=== PATIENT | male | born 1970 | race Caucasian/White ===

== ENCOUNTER 2016-08-03 10:20 | Emergency (ER) | payer BC ==
--- NOTE | 2016-08-03 10:30 | EDM.PDOC ---
ED HPI GENERAL MEDICAL PROBLEM - General Stated Complaint: SHAKING Time Seen by Provider: 08/03/16 10:30 - History of Present Illness INITIAL COMMENTS - FREE TEXT/NARRATIVE: 46-year-old male presents to the emergency room after having a near syncopal type episode. Shortly before arrival the patient was driving and became lightheaded and shaky. The patient has not had prior episodes like this. He did notice he was having intermittent very brief twinges of chest pressure these were infrequent lasted less than 20 seconds. He did not have pain in his arms and his neck or elsewhere. Patient was not having any nausea no shortness of breath or diaphoresis. He is not currently treated for any medical condition. Family history is negative for people with syncopal-type episodes or premature coronary artery disease Left Chest Pain Score (Numeric/FACES): 2 - Related Data Allergies Allergy/AdvReac Type Severity Reaction Status Date / Time No Known Allergies Allergy Verified 08/03/16 10:43 Home Meds: Home Meds . [No Known Home Meds] 08/03/16 [History] ED ROS GENERAL - Review of Systems Review Of Systems: See Below Constitutional: Reports: no symptoms HEENT: Reports: No symptoms Respiratory: Reports: No Symptoms Cardiovascular: Reports: Chest pain (minimal and intermittent) GI/Abdominal: Reports: No symptoms : Reports: no symptoms Musculoskeletal: Reports: no symptoms Skin: Reports: no symptoms Neurological: Reports: Dizziness, Weakness. Denies: Headache, Numbness Psychiatric: Reports: No symptoms ED EXAM, GENERAL - Physical Exam Exam: See Below Exam Limited By: No limitations General Appearance: alert, no apparent distress, other (He is symptom-free at the time of arrival to the emergency department) Head: atraumatic, normocephalic Neck: normal inspection, supple, non-tender, full range of motion Respiratory/Chest: no respiratory distress, lungs clear, normal breath sounds Cardiovascular: regular rate, rhythm, no edema, no murmur GI/Abdominal: normal bowel sounds, soft, non tender (Male) Exam: No hernia Extremities: normal inspection, no pedal edema Neurological: alert, oriented, normal cognition Psychiatric: normal affect, normal mood Lymphatic: no adenopathy EKG INTERPRETATION EKG Interpretation Comments: Borderline EKG no acute ST-T wave changes she's got some nonspecific changes most likely related to repolarization to borderline J-point elevation in aVL only borderline axis intervals normal. No acute ischemia Course - Vital Signs Last Recorded V/S: Last Vital Signs Temp 36.9 C 08/03/16 10:37 Pulse 73 08/03/16 10:37 Resp 18 08/03/16 10:37 BP 141/90 H 08/03/16 10:37 Pulse Ox 99 08/03/16 10:37 - Orders/Labs/Meds Orders: Active Orders 24 hr Category Date Time Status EKG 12 Lead [EKG Documentation Completion] [RC] STAT Care 08/03/16 10:56 Active Chest 1V Frontal [CR] Stat Exams 08/03/16 11:42 Taken URINALYSIS W/MICROSCOPIC [UA W/MICROSCOPIC] [URIN] Stat Lab 08/03/16 11:34 Uncollected Labs: Laboratory Tests 08/03/16 08/03/16 08/03/16 Range/Units 10:37 11:46 11:46 WBC 6.35 (4.23-9.07) K/mm3 RBC 4.87 (4.63-6.08) M/mm3 Hgb 15.5 (13.7-17.5) gm/L Hct 43.3 (40.1-51.0) % MCV 88.9 (79.0-92.2) fl MCH 31.8 (25.7-32.2) pg MCHC 35.8 H (32.2-35.5) g/dl RDW Std Deviation 38.4 (35.1-43.9) fL Plt Count 157 L (163-337) K/mm3 MPV 10.7 (9.4-12.3) fl Neutrophils % (Manual) 78 H (40-60) % Band Neutrophils % 0 (0-10) % Lymphocytes % (Manual) 18 L (20-40) % Atypical Lymphs % 0 % Monocytes % (Manual) 0 L (2-10) % Eosinophils % (Manual) 4 (0.8-7.0) % Basophils % (Manual) 0 L (0.2-1.2) Platelet Estimate Adequate RBC Morph Comment Normal Sodium 140 (136-145) mEq/L Potassium 4.2 (3.5-5.1) mEq/L Chloride 103 (98-107) mEq/L Carbon Dioxide 27 (21-32) mEq/L Anion Gap 14.2 (5-15) BUN 12 (7-18) mg/dL Creatinine 1.0 (0.7-1.3) mg/dL Est Cr Clr Drug Dosing 103.47 mL/min Estimated GFR (MDRD) > 60 (>60) mL/min BUN/Creatinine Ratio 12.0 L (14-18) Glucose 99 (74-106) mg/dL POC Glucose 153 H (70-105) mg/dL Calcium 8.7 (8.5-10.1) mg/dL Total Bilirubin 0.5 (0.2-1.0) mg/dL AST 18 (15-37) U/L ALT 36 (16-63) U/L Alkaline Phosphatase 51 (46-116) U/L Troponin I (0.00-0.056) ng/mL Total Protein 6.8 (6.4-8.2) g/dl Albumin 4.0 (3.4-5.0) g/dl Globulin 2.8 gm/dL Albumin/Globulin Ratio 1.4 (1-2) 08/03/16 Range/Units 11:46 WBC (4.23-9.07) K/mm3 RBC (4.63-6.08) M/mm3 Hgb (13.7-17.5) gm/L Hct (40.1-51.0) % MCV (79.0-92.2) fl MCH (25.7-32.2) pg MCHC (32.2-35.5) g/dl RDW Std Deviation (35.1-43.9) fL Plt Count (163-337) K/mm3 MPV (9.4-12.3) fl Neutrophils % (Manual) (40-60) % Band Neutrophils % (0-10) % Lymphocytes % (Manual) (20-40) % Atypical Lymphs % % Monocytes % (Manual) (2-10) % Eosinophils % (Manual) (0.8-7.0) % Basophils % (Manual) (0.2-1.2) Platelet Estimate RBC Morph Comment Sodium (136-145) mEq/L Potassium (3.5-5.1) mEq/L Chloride (98-107) mEq/L Carbon Dioxide (21-32) mEq/L Anion Gap (5-15) BUN (7-18) mg/dL Creatinine (0.7-1.3) mg/dL Est Cr Clr Drug Dosing mL/min Estimated GFR (MDRD) (>60) mL/min BUN/Creatinine Ratio (14-18) Glucose (74-106) mg/dL POC Glucose (70-105) mg/dL Calcium (8.5-10.1) mg/dL Total Bilirubin (0.2-1.0) mg/dL AST (15-37) U/L ALT (16-63) U/L Alkaline Phosphatase (46-116) U/L Troponin I < 0.017 (0.00-0.056) ng/mL Total Protein (6.4-8.2) g/dl Albumin (3.4-5.0) g/dl Globulin gm/dL Albumin/Globulin Ratio (1-2) Meds: Medications Discontinued Medications Generic Name Dose Route Start Last Admin Trade Name Freq PRN Reason Stop Dose Admin Aspirin 324 mg 08/03/16 11:43 08/03/16 12:20 Aspirin PO 08/03/16 11:44 324 mg ONETIME ONE Administration - Re-Assessments/Exams Free Text/Narrative Re-Assessment/Exam: 08/03/16 12:41 Workup negative thus far chest x-ray is rotated may have mediastinal fullness on the right but I think is rotational artifact return evaluation unremarkable EKG normal. Offered to obtain a second troponin but he would like to be discharged. He will followup as regular physician discussed Holter monitoring and possible echo Departure - Departure Time of Disposition: 12:43 Disposition: Home, Self-Care 01 Clinical Impression: Near syncope, Chest pain Instructions: Near-Syncope, [id number], Nonspecific Chest Pain, [id number] Referrals: Puneet Valentine MD [Primary Care Provider] - Forms: ED Department Discharge Additional Instructions: Return to the emergency room with any questions or problems. Start daily aspirin 81 mg daily. Followup with your regular physician this next week. - My Orders Last 24 Hours: My Active Orders 08/03/16 10:56 EKG 12 Lead [EKG Documentation Completion] [RC] STAT 08/03/16 11:34 URINALYSIS W/MICROSCOPIC [UA W/MICROSCOPIC] [URIN] Stat 08/03/16 11:42 Chest 1V Frontal [CR] Stat - Assessment/Plan Last 24 Hours: My Active Orders 08/03/16 10:56 EKG 12 Lead [EKG Documentation Completion] [RC] STAT 08/03/16 11:34 URINALYSIS W/MICROSCOPIC [UA W/MICROSCOPIC] [URIN] Stat 08/03/16 11:42 Chest 1V Frontal [CR] Stat
[2016-08-03] MEDS ORDERED: Aspirin 81 MG Tab.Chew PO ONE (11:43)
[2016-08-03 14:25] VITALS: BP 105/70
--- NOTE | 2016-08-04 11:59 | CR ---
Chest: Portable view of the chest was obtained. Comparison: No previous chest x-ray. Heart size and mediastinum are normal. Lungs are clear. Bony structures are grossly intact. Impression: 1. Nothing acute is identified on portable chest x-ray. Diagnostic code #1
== END 2016-08-03 13:45 | disposition home or self-care (01) ==
LOC: JD.ED 10:20
DX: R55 Syncope and collapse (principal); R07.9 Chest pain, unspecified
CPT/HCPCS: 36415; 71010; 80053; 82962; 84484; 85025; 93005; 99285; A9270; 99284

== ENCOUNTER 2017-02-13 22:00 | Emergency (ER) | payer BC ==
[2017-02-13 22:07] VITALS: BP 136/87
--- NOTE | 2017-02-13 22:28 | EDM.PDOC ---
ED HPI GENERAL MEDICAL PROBLEM - General Chief Complaint: Syncope Stated Complaint: [facility] Time Seen by Provider: 02/13/17 22:03 Source of Information: Reports: Patient, RN Notes Reviewed History Limitations: Reports: No Limitations - History of Present Illness INITIAL COMMENTS - FREE TEXT/NARRATIVE: The patient states that he was resting on his bed, sat up on the edge of the bed for about a minute, then got up and went into his kitchen. He began feeling faint and thought that he might pass out. He bent over the kitchen counter, but collapsed anyway, witnessed by his significant other. She states that he did not have any seizure-like activity, but that he was very diaphoretic on the floor. He regained consciousness about 10 seconds later. The patient states that he then sat up, but continued to feel like he might pass out for several minutes thereafter. The patient states that he was uninjured when he collapsed. He did not strike his head. EMS was called. The EMS report indicates that they found the patient sitting up on the floor, with clammy pale skin. They note that the patient's BP was 160/98 with a HR of 94. His ECG was normal. Here in the ED, the patient states that he is "fine". The patient states that he fell while ice skating on 02/11/2017, bruising his ribs. They have been sore since, and he reports some dyspnea. The patient and his significant other reports that the patient had similar symptoms about 6 months ago (medical records indicate that the patient was seen in this ED for a syncopal episode on 08/03/2016), and that an ER workup was negative. He subsequently followed up with his PCP, Dr. Mesa, who performed an echocardiogram as well as other tests, all of which were negative. The patient believes that he was started on blood pressure medication about a year ago, prior to his last syncopal episode. The patient states that he drinks alcohol daily, and that he has had 6 or 7 shots today. Right Thoracic Pain Score (Numeric/FACES): 6 - Related Data Allergies Allergy/AdvReac Type Severity Reaction Status Date / Time No Known Allergies Allergy Verified 02/13/17 22:02 Home Meds: Home Meds Aspirin 81 mg PO DAILY 02/13/17 [History] Losartan [Cozaar] 0 mg PO DAILY 02/13/17 [History] Past Medical History Cardiovascular History: Reports: Hypertension Social & Family History - Tobacco Use Smoking Status *Q: Current Every Day Smoker Years of Tobacco use: 11 Packs/Tins Daily: 1 - Caffeine Use Caffeine Use: Reports: Energy Drinks - Alcohol Use Alcohol Use History: Yes Days Per Week of Alcohol Use: 7 Number of Drinks Per Day: 10 Total Drinks Per Week: 70 Alcohol Use Frequency: Daily - Recreational Drug Use Recreational Drug Use: Yes Drug Use in Last 12 Months: No Recreational Drug Type: Reports: Marijuana/Hashish - Living Situation & Occupation Living situation: Reports: Single, with Significant Other, with Family (2 kids) 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) ED ROS GENERAL - Review of Systems Review Of Systems: See Below Constitutional: Reports: No Symptoms HEENT: Reports: No Symptoms Respiratory: Reports: No Symptoms Cardiovascular: Reports: No Symptoms Endocrine: Reports: No Symptoms GI/Abdominal: Reports: No Symptoms : Reports: No Symptoms Musculoskeletal: Reports: No Symptoms Skin: Reports: No Symptoms Neurological: Reports: No Symptoms Psychiatric: Reports: No Symptoms Hematologic/Lymphatic: Reports: No Symptoms Immunologic: Reports: No Symptoms - Physical Exam Exam: See Below Exam Limited By: No Limitations General Appearance: Alert, WD/WN, No Apparent Distress Eye Exam: Bilateral Eye: Normal Inspection Ears: Normal External Exam, Hearing Grossly Normal Nose: Normal Inspection, No Blood Throat/Mouth: Normal Inspection, Normal Lips, Normal Voice, No Airway Compromise Head Exam: Atraumatic, Normocephalic Neck: Normal Inspection, Full Range of Motion Respiratory/Chest: No Respiratory Distress, Lungs Clear, Normal Breath Sounds, No Accessory Muscle Use Cardiovascular: Normal Peripheral Pulses, Regular Rate, Rhythm, No Gallop, No JVD, No Murmur, No Rub GI/Abdominal: Normal Bowel Sounds, Soft, Non-Tender, No Organomegaly, No Distention, No Abnormal Bruit, No Mass (Male) Exam: Deferred Rectal (Males) Exam: Deferred Neuro Exam (Abbreviated): Alert, Oriented, CN II-XII Intact, Normal Cognition, No Motor/Sensory Deficits Back Exam: Normal Inspection, Full Range of Motion, NT Extremities: Normal Inspection, Normal Range of Motion, No Pedal Edema, Normal Capillary Refill Psychiatric: Normal Affect Skin Exam: Warm, Dry, Intact, Normal Color, No Rash EKG INTERPRETATION EKG Date: 02/13/17 Time: 23:47 Rhythm: NSR Rate (Beats/Min): 76 [place]: Normal P-Wave: Present QRS: Normal ST-T: Normal QT: Normal Comparison: No Change (08/03/2016) Course - Vital Signs Last Recorded V/S: Last Vital Signs Temp 36.2 C 02/13/17 22:03 Pulse 81 02/13/17 22:03 Resp 22 H 02/13/17 22:03 BP 136/87 02/13/17 22:03 Pulse Ox 94 L 02/13/17 22:03 Orthostatic Blood Pressure [ 122/77 Standing] Orthostatic Blood Pressure [ 120/80 Sitting] Orthostatic Blood Pressure [ 125/78 Supine] - Orders/Labs/Meds Orders: Active Orders 24 hr Category Date Time Status EKG Documentation Completion [RC] STAT Care 02/13/17 22:52 Active Orthostatic Vital Signs [RC] STAT Care 02/13/17 22:28 Active Chest 2V [CR] Stat Exams 02/13/17 22:52 Taken Labs: Laboratory Tests 02/13/17 02/13/17 02/13/17 Range/Units 23:10 23:10 23:10 WBC 8.52 (4.23-9.07) K/mm3 RBC 4.56 L (4.63-6.08) M/mm3 Hgb 14.9 (13.7-17.5) gm/L Hct 41.9 (40.1-51.0) % MCV 91.9 (79.0-92.2) fl MCH 32.7 H (25.7-32.2) pg MCHC 35.6 H (32.2-35.5) g/dl RDW Std Deviation 40.6 (35.1-43.9) fL Plt Count 187 (163-337) K/mm3 MPV 10.1 (9.4-12.3) fl Neutrophils % (Manual) 86 H (40-60) % Band Neutrophils % 1 (0-10) % Lymphocytes % (Manual) 10 L (20-40) % Atypical Lymphs % 0 % Immat Monocytes % (Man) 0 Monocytes % (Manual) 2 (2-10) % Eosinophils % (Manual) 1 (0.8-7.0) % Basophils % (Manual) 0 L (0.2-1.2) Metamyelocytes % 0 Myelocytes % 0 Promyelocytes % 0 Blast Cells % 0 Plasma Cell % (Manual) 0 Nucleated RBCs 0.0 % Platelet Estimate Adequate RBC Morph Comment Normal PT 10.0 (8.0-13.0) SECONDS INR 0.92 APTT 24 (22-36) SECONDS D-Dimer, Quantitative < 0.19 L (0.19-0.59) mg/L Sodium 140 (136-145) mEq/L Potassium 3.3 L (3.5-5.1) mEq/L Chloride 102 (98-107) mEq/L Carbon Dioxide 22 (21-32) mEq/L Anion Gap 19.3 H (5-15) BUN 19 H (7-18) mg/dL Creatinine 1.0 (0.7-1.3) mg/dL Est Cr Clr Drug Dosing 103.47 mL/min Estimated GFR (MDRD) > 60 (>60) mL/min BUN/Creatinine Ratio 19.0 H (14-18) Glucose 107 H (74-106) mg/dL Calcium 8.4 L (8.5-10.1) mg/dL Magnesium 2.0 (1.8-2.4) mg/dl Total Bilirubin 0.3 (0.2-1.0) mg/dL AST 21 (15-37) U/L ALT 33 (16-63) U/L Alkaline Phosphatase 51 (46-116) U/L Troponin I < 0.017 (0.00-0.056) ng/mL Total Protein 6.9 (6.4-8.2) g/dl Albumin 3.8 (3.4-5.0) g/dl Globulin 3.1 gm/dL Albumin/Globulin Ratio 1.2 (1-2) Urine Opiates Screen (NEGATIVE) Ur Buprenorphine Scrn (NEGATIVE) Ur Oxycodone Screen (NEGATIVE) Urine Methadone Screen (NEGATIVE) Ur Propoxyphene Screen (NEGATIVE) Ur Barbiturates Screen (NEGATIVE) Ur Tricyclics Screen (NEGATIVE) Ur Phencyclidine Scrn (NEGATIVE) Ur Amphetamine Screen (NEGATIVE) U Methamphetamines Scrn (NEGATIVE) U Benzodiazepines Scrn (NEGATIVE) U Cocaine Metab Screen (NEGATIVE) U Marijuana (THC) Screen (NEGATIVE) Ethyl Alcohol 0.02 (0.00) gm% 02/14/17 Range/Units 00:45 WBC (4.23-9.07) K/mm3 RBC (4.63-6.08) M/mm3 Hgb (13.7-17.5) gm/L Hct (40.1-51.0) % MCV (79.0-92.2) fl MCH (25.7-32.2) pg MCHC (32.2-35.5) g/dl RDW Std Deviation (35.1-43.9) fL Plt Count (163-337) K/mm3 MPV (9.4-12.3) fl Neutrophils % (Manual) (40-60) % Band Neutrophils % (0-10) % Lymphocytes % (Manual) (20-40) % Atypical Lymphs % % Immat Monocytes % (Man) Monocytes % (Manual) (2-10) % Eosinophils % (Manual) (0.8-7.0) % Basophils % (Manual) (0.2-1.2) Metamyelocytes % Myelocytes % Promyelocytes % Blast Cells % Plasma Cell % (Manual) Nucleated RBCs % Platelet Estimate RBC Morph Comment PT (8.0-13.0) SECONDS INR APTT (22-36) SECONDS D-Dimer, Quantitative (0.19-0.59) mg/L Sodium (136-145) mEq/L Potassium (3.5-5.1) mEq/L Chloride (98-107) mEq/L Carbon Dioxide (21-32) mEq/L Anion Gap (5-15) BUN (7-18) mg/dL Creatinine (0.7-1.3) mg/dL Est Cr Clr Drug Dosing mL/min Estimated GFR (MDRD) (>60) mL/min BUN/Creatinine Ratio (14-18) Glucose (74-106) mg/dL Calcium (8.5-10.1) mg/dL Magnesium (1.8-2.4) mg/dl Total Bilirubin (0.2-1.0) mg/dL AST (15-37) U/L ALT (16-63) U/L Alkaline Phosphatase (46-116) U/L Troponin I (0.00-0.056) ng/mL Total Protein (6.4-8.2) g/dl Albumin (3.4-5.0) g/dl Globulin gm/dL Albumin/Globulin Ratio (1-2) Urine Opiates Screen Negative (NEGATIVE) Ur Buprenorphine Scrn Negative (NEGATIVE) Ur Oxycodone Screen Negative (NEGATIVE) Urine Methadone Screen Negative (NEGATIVE) Ur Propoxyphene Screen Negative (NEGATIVE) Ur Barbiturates Screen Negative (NEGATIVE) Ur Tricyclics Screen Negative (NEGATIVE) Ur Phencyclidine Scrn Negative (NEGATIVE) Ur Amphetamine Screen Negative (NEGATIVE) U Methamphetamines Scrn Negative (NEGATIVE) U Benzodiazepines Scrn Negative (NEGATIVE) U Cocaine Metab Screen Negative (NEGATIVE) U Marijuana (THC) Screen Presumptive positive H (NEGATIVE) Ethyl Alcohol (0.00) gm% - Re-Assessments/Exams Free Text/Narrative Re-Assessment/Exam: 02/13/17 22:25 The patient is not orthostatic. 02/13/17 22:57 Two-view chest radiograph appears to be grossly normal. Poor inspiratory effort. Cardiac silhouette is within normal limits. No pulmonary vascular congestion. No pleural effusions. No focal infiltrate. No pneumothorax. Formal read per the Radiologist pending. 02/14/17 01:45 Test results discussed with the patient, his significant other, and one of his kids. Today's workup is, for the most part, unremarkable, and does not explain the cause of the patient's syncopal episode. His alcohol level is mildly elevated at 0.02, and his urine drug screen is positive for marijuana, but neither would be expected to cause syncope. The patient has not been hypotensive while here in the ED, although it is possible that he was significantly hypotensive while at home, causing syncope. I do not see an indication to admit the patient, therefore I will discharge him home, to follow- up with his PCP. Departure - Departure Time of Disposition: 01:47 Disposition: Home, Self-Care 01 Condition: Good Clinical Impression: Syncope, Alcohol abuse - Discharge Information Referrals: Puneet Valentine MD [Primary Care Provider] - Forms: ED Department Discharge Additional Instructions: You were seen in the emergency room after passing out at home. Workup in the ER included blood work, an ECG, a chest x-ray, and positional blood pressure checks. Your workup was remarkable for an alcohol level mildly elevated at 0.02, and your urine drug screen being positive for marijuana. The remainder of your workup was unremarkable. You have not suffered a heart attack. You do not have a blood clot in your lungs. Your electrolytes are not significantly abnormal. Are not severely anemic. The cause of your passing out is not known, but it MAY be due to your blood pressure being too low, due to your blood pressure medication. We recommend that you follow-up with your PCP, Dr. Mesa, for further evaluation, including consideration if you need to continue to be on losartan. We recommend that you consider decreasing your alcohol intake. If any other problems, please do not hesitate to return to the ER. - My Orders Last 24 Hours: My Active Orders 02/13/17 22:28 Orthostatic Vital Signs [RC] STAT 02/13/17 22:52 EKG Documentation Completion [RC] STAT Chest 2V [CR] Stat - Assessment/Plan Last 24 Hours: My Active Orders 02/13/17 22:28 Orthostatic Vital Signs [RC] STAT 02/13/17 22:52 EKG Documentation Completion [RC] STAT Chest 2V [CR] Stat
--- NOTE | 2017-02-14 10:07 | CR ---
Chest: Two views of the chest were obtained. Comparison: Prior portable chest x-ray of 08/03/16. Heart size and mediastinum are within normal limits. Lungs are clear. Bony structures are within normal limits for the patient's age. Impression: 1. Nothing acute is identified on two-view chest x-ray. Diagnostic code #1
== END 2017-02-14 01:55 | disposition home or self-care (01) ==
LOC: JD.ED 22:00
DX: R55 Syncope and collapse (principal); F10.10 Alcohol abuse, uncomplicated; F17.210 Nicotine dependence, cigarettes, uncomplicated; I10 Essential (primary) hypertension; Z79.82 Long term (current) use of aspirin; Z79.899 Other long term (current) drug therapy
CPT/HCPCS: 36415; 71020; 80053; 80306; 83735; 84484; 85025; 85379; 85610; 85730; 93005; 99285; G0480; 93010; 99284-25